=== PATIENT | male | born 1995 | race Caucasian/White ===

== ENCOUNTER 2019-12-06 16:42 | Emergency (ER) | payer OTHER, SELFPAY ==
[2019-12-06 17:25] VITALS: BP 127/59; PULSE 65; RESP 14; TEMP 36.6; O2SAT 99
--- NOTE | 2019-12-06 17:32 | ED.GENADULT ---
HPI - General Adult General Chief complaint: Upper Respiratory Infection Stated complaint: Sore throat/Nausea Time Seen by Provider: 12/06/19 17:32 Source: patient Mode of arrival: ambulatory Limitations: no limitations History of Present Illness HPI narrative: 24-year-old male patient presents to the [facility] with complaints of sore throat and fever that started last night. Patient states today he started getting body aches and chills. Patient states he did take some ibuprofen for symptoms about 3 hours ago. Patient states he did get a flu shot this year however he states there is been multiple coworkers of him that has been out for influenza A. Patient denies any coughing, chest pain, shortness of breath. Denies any abdominal pain, nausea, vomiting or diarrhea. Related Data Home Medications Medication Instructions Recorded Confirmed No Home Medications 12/06/19 12/06/19 Allergies Allergy/AdvReac Type Severity Reaction Status Date / Time No Known Allergies Allergy Verified 12/06/19 17:35 Review of Systems Review of Systems: Narrative: CONSTITUTIONAL: Positive fever, body aches, chills, denies sweats. EYES: Denies visual changes, redness, or discharge. ENT: Denies rhinorrhea, congestion, positive sore throat, denies otalgia. CARDIOVASCULAR: Denies chest pain, palpitations, or edema. RESPIRATORY: Denies cough or dyspnea. GASTROINTESTINAL: Denies abdominal pain, nausea, vomiting, or diarrhea. GENITOURINARY: Denies dysuria or hematuria. SKIN: Denies rash or itching. MUSCULOSKELETAL: Denies back pain, joint pain, or myalgia. NEUROLOGIC: Positive headache, denies numbness, or weakness. PSYCHIATRIC: Denies anxiety or depression. PMFSH Comments At the time of my signature I agree with nursing past medical history, surgical, social, and family history. There is no relevant family history pertinent to the presenting complaint. Exam Narrative: Exam Narrative: GENERAL: ill-appearing, well-nourished, and in no acute distress. HEAD: Normocephalic, atraumatic. No tenderness noted to frontal and maxillary sinuses on palpation EYES: PERRLA and EOMI. ENT: Nares clear, no rhinorrhea or epistaxis. Mucous membranes moist. Posterior pharynx with erythema and 2+ tonsil enlargement. Bilateral TMs are clear with no erythema or foreign bodies to the canal. NECK: Supple. No lymphadenopathy CHEST: Clear to auscultation. No respiratory distress. HEART: Regular rate and rhythm. No murmur heard. Normal peripheral pulses. ABDOMEN: Soft, nontender, nondistended, normal active bowel sounds. EXTREMITIES: Normal range of motion. No edema. SKIN: Warm, dry, no rash. NEURO: No focal deficits. Alert and oriented x3. Course Reevaluation(s) Reevaluation #1: Notify patient he is negative today for strep and influenza. Discussed with him that he can take Tylenol and ibuprofen for his pain, warm salt water gargles, hot tea and honey and a humidifier in his room for symptomatic treatment. Discussed with patient I did go ahead and write him off of work tomorrow in case he is still not feeling well running some fevers. Discussed with patient that we will send the strep swab off to the lab for further evaluation if it does come back positive the next day or 2 he will get a phone call from us. Patient verbalized understanding denies any other questions or concerns at this time. Date: 12/06/19 Time: 17:46 Vital Signs Vital signs: Vital Signs Temperature 36.6 C 12/06/19 17:25 Pulse Rate 65 12/06/19 17:25 Respiratory Rate 14 12/06/19 17:25 Blood Pressure 127/59 L 12/06/19 17:25 Pulse Oximetry 99 12/06/19 17:25 Temperature 36.6 C 12/06/19 17:25 Pulse Rate 65 12/06/19 17:25 Respiratory Rate 14 12/06/19 17:25 Blood Pressure 127/59 L 12/06/19 17:25 Pulse Oximetry 99 12/06/19 17:25 Vital signs reviewed. Medical Decision Making Differential Diagnosis Differential Diagnosis: Differential diagnosis: Allergic rhinitis, ch
== END 2019-12-06 17:55 | disposition home or self-care (01) ==
PROVIDERS: Emergency Provider Nurse Practitioner Family; PCP Internal Medicine
DX: J02.9 Acute pharyngitis, unspecified (principal)
CPT/HCPCS: 87081; 87804; 87880; 99203; G0463

== ENCOUNTER 2020-05-27 16:59 | Emergency (ER) | payer OTHER, SELFPAY ==
[2020-05-27 17:05] VITALS: BP 145/70; PULSE 99; RESP 16; TEMP 36.6; O2SAT 98
--- NOTE | 2020-05-27 17:10 | ED.EYEPROB ---
HPI - Eye Problem General Chief complaint: Eye Problems Stated complaint: contact stuck in eye Time Seen by Provider: 05/27/20 17:11 Source: patient History of Present Illness HPI Narrative: patient states that he slept in his contacts last night and feels as if he has one stuck in his eye. No vision problems. Patient states he feels like he has an irritation to his left eye. Patient states he just started wearing contacts 1 week ago. Related Data Allergies Allergy/AdvReac Type Severity Reaction Status Date / Time No Known Allergies Allergy Verified 05/27/20 17:20 Review of Systems Review of Systems: Narrative: CONSTITUTIONAL: Denies fever, chills, or sweats. EYES: Denies visual changes, redness, or discharge. ENT: Denies rhinorrhea, congestion, sore throat, or otalgia. CARDIOVASCULAR: Denies chest pain, palpitations, or edema. RESPIRATORY: Denies cough or dyspnea. GASTROINTESTINAL: Denies abdominal pain, nausea, vomiting, or diarrhea. GENITOURINARY: Denies dysuria or hematuria. SKIN: Denies rash or itching. MUSCULOSKELETAL: Denies back pain, joint pain, or myalgia. NEUROLOGIC: Denies headache, numbness, or weakness. PSYCHIATRIC: Denies anxiety or depression. PMFSH Comments At time of signature, agree with nursing past medical, surgical, social and family history. There is no relevant family history pertinent to the presenting complaint Exam Narrative: Exam Narrative: GENERAL: Well-appearing, well-nourished, and in no acute distress. HEAD: Normocephalic, atraumatic. EYES: PERRLA and EOMI. ENT: Nares clear, no rhinorrhea or epistaxis. Mucous membranes moist. NECK: Supple. CHEST: Clear to auscultation. No respiratory distress. HEART: Regular rate and rhythm. No murmur heard. Normal peripheral pulses. ABDOMEN: Soft, nontender, nondistended, normal active bowel sounds. EXTREMITIES: Normal range of motion. No edema. SKIN: Warm, dry, no rash. NEURO: No focal deficits. Alert and oriented x3. Hue Coma Scale Eye Opening: Spontaneous 4 Hue Coma Scale Motor: Obeys Commands 6 Hue Coma Scale Verbal: Oriented 5 [place] Coma Scale Total 15 Course Vital Signs Vital signs: Vital Signs Temperature 36.6 C 05/27/20 17:05 Pulse Rate 99 05/27/20 17:05 Respiratory Rate 16 05/27/20 17:05 Blood Pressure 145/70 H 05/27/20 17:05 Pulse Oximetry 98 05/27/20 17:05 Temperature 36.6 C 05/27/20 17:05 Pulse Rate 99 05/27/20 17:05 Respiratory Rate 16 05/27/20 17:05 Blood Pressure 145/70 H 05/27/20 17:05 Pulse Oximetry 98 05/27/20 17:05 Please YISEL schedule a followup visit with your personal physician for further evaluation and treatment. Including recheck and discussion of your blood pressure. If your symptoms persist, change or worsen significantly before you can contact your personal physician then please, without delay, go to the emergency department for further evaluation Procedures FB Removal Eye Foreign Body #1: Time Out performed: Yes Location: eye (L) Topical anesthetic used: proparacaine Foreign body: other (No foreign body noted no abrasions) Evidence of corneal penetration: No Technique: irrigation and eye wash bottle Procedure performed under: direct visualization with magnification Patient tolerated procedure: well Foreign Body Removal Narrative: Eye exam with stain after numbing left eye no foreign body visualized no corneal abrasion visualized MDM - Eye Problem Differential Diagnosis Differential diagnosis: Likely corneal abrasion (Loss contact lens in eye) and conjunctivitis Critical Care Time Critical Care Time Critical Care Time: No Discharge Plan Discharge Clinical Impression: Corneal abrasion Patient Disposition: Home, Self-Care Condition: Stable Instructions: Antibiotic Form, Corneal Abrasion (DC) Additional Instructions: Do not wear contact lenses for 10 days Follow-up with family eye doctor i
== END 2020-05-27 17:40 | disposition home or self-care (01) ==
PROVIDERS: Emergency Provider Nurse Practitioner Family; PCP Internal Medicine
DX: S05.02XA Injury of conjunctiva and corneal abrasion without foreign body, left eye, initial encounter (principal); X58.XXXA Exposure to other specified factors, initial encounter
CPT/HCPCS: 99213; A9270; G0463

== ENCOUNTER 2020-09-08 11:28 | Emergency (ER) | payer OTHER, SELFPAY ==
[2020-09-08 11:32] VITALS: BP 144/55; PULSE 93; RESP 14; TEMP 36.3; O2SAT 98
[2020-09-08 11:44] VITALS: BP 144/55; PULSE 93; RESP 14; TEMP 36.3; O2SAT 98
--- NOTE | 2020-09-08 12:05 | ED.URI ---
HPI - URI/Sore Throat General Chief Complaint: Upper Respiratory Infection Stated Complaint: Sore throat Time Seen by Provider: 09/08/20 11:57 Source: patient and RN notes reviewed Mode of arrival: ambulatory Limitations: no limitations History of Present Illness HPI Narrative: Patient presents today complaining of a 2-day history of sore throat. Denies fever, cough, shortness of breath or difficulty swallowing. States his child was sick with fever 1 day prior to onset of patient's symptoms, but is now feeling better and was diagnosed with nothing specific. Patient currently rates his pain 8/10. He has been alternating Tylenol and ibuprofen without much relief. Pain significantly increases with swallowing is having difficulty eating due to pain.Patient had COVID-19 approximately 4 weeks ago. MD elicited complaint: sore throat Related Data Home Medications Medication Instructions Recorded Confirmed sildenafil 50 mg PO DAILY PRN 09/08/20 09/08/20 Allergies Allergy/AdvReac Type Severity Reaction Status Date / Time No Known Allergies Allergy Verified 09/08/20 11:43 Review of Systems Review of Systems: Narrative: CONSTITUTIONAL: Denies body aches, fever, chills, or sweats. EYES: Denies visual changes, redness, or discharge. ENT: Denies rhinorrhea, congestion, or otalgia.+Sore throat CARDIOVASCULAR: Denies chest pain, palpitations, or edema. RESPIRATORY: Denies cough or dyspnea. GASTROINTESTINAL: Denies abdominal pain, nausea, vomiting, or diarrhea. GENITOURINARY: Denies dysuria or hematuria. SKIN: Denies rash, itching, or wounds. MUSCULOSKELETAL: Denies back pain, joint pain, or myalgia. NEUROLOGIC: Denies headache, numbness, tingling, or weakness. PSYCH: Denies depression or anxiety. [facility] Past Medical History Medical History (Updated 09/08/20 @ 12:09 by Sobeida Yuan, [employer], ) Anxiety Erectile dysfunction Comments At time of signature, I have reviewed and agree with nursing past medical, surgical, social and family history unless otherwise noted. Please see nursing chart for further information. There is no relevant family history pertinent to the presenting complaint Exam Narrative: Exam Narrative: GENERAL: Well-appearing, well-nourished, and in no acute distress. HEAD: Normocephalic, atraumatic. EYES: EOMI. No redness or drainage. Conjunctivae normal. ENT: Mucous membranes pink and moist. Nares clear. No rhinorrhea. TMs normal bilaterally. Throat Erythematous with mild edema. Tonsils 3+ with white exudate. Uvula midline. NECK: Normal AROM. Supple. Bilateral tonsillar lymphadenopathy. CHEST: No respiratory distress. Clear to auscultation. HEART: Regular rate and rhythm. No murmur appreciated. Normal peripheral pulses. EXTREMITIES: Normal range of motion. No edema. SKIN: Warm, dry, no rash. Capillary refill normal. Normal skin turgor. NEURO: No focal deficits. Alert and oriented x3. Gait steady. PSYCH: Normal affect. No signs of depression or anxiety. Course Vital Signs Vital signs: Vital Signs Temperature 97.3 F L 09/08/20 11:32 Pulse Rate 93 09/08/20 11:32 Respiratory Rate 14 09/08/20 11:32 Blood Pressure 144/55 H 09/08/20 11:32 Pulse Oximetry 98 09/08/20 11:32 Temperature 97.3 F L 09/08/20 11:44 Pulse Rate 93 09/08/20 11:44 Respiratory Rate 14 09/08/20 11:44 Blood Pressure 144/55 H 09/08/20 11:44 Pulse Oximetry 98 09/08/20 11:44 Reviewed. Pt has been instructed to follow up with his PCP regarding his elevated blood pressure today. MDM - URI/Sore Throat Differential Diagnosis Differential diagnosis: Likely upper respiratory infection, viral infection, pharyngitis and other (Tonsillitis, strep throat) Lab Data Attestation: I reviewed the patient's lab results. Labs: Strep Screen Presumptive Negative *(Reference Range: Negative)* Critical Care Time Critical Care Time Critical Care Time
== END 2020-09-08 12:13 | disposition home or self-care (01) ==
PROVIDERS: Emergency Provider Nurse Practitioner; PCP Internal Medicine
DX: J02.9 Acute pharyngitis, unspecified (principal); Z86.19 Personal history of other infectious and parasitic diseases
CPT/HCPCS: 87081; 87880; 99213; G0463